=== PATIENT | female | born 1930 | race Caucasian/White ===

== ENCOUNTER 2017-10-31 17:26 | Emergency (ER) | payer MEDICARE ==
[~2017-10-31] VITALS: Ht 149.9 cm; Wt 50.0 kg
[~2017-10-31 17:26] MED LIST: ACET325T14 PO; LEVO25TA2 PO; LISI-170 PO; OMEP-110 PO; POTA20PA PO; SPIR25TA3 PO; TRAM50TA2 PO
[2017-10-31] MEDS ORDERED: SODIUM CHLORIDE FLUSH 10ML SYR IVF ONE (18:00)
[2017-10-31] MEDS ORDERED: SODIUM CHLORIDE 0.9% 1,000ML IVBOLUS ONE (18:00)
[2017-10-31] MEDS ORDERED: ONDANSETRON 2MG/ML, 2ML IVPush ONE (18:00)
[2017-10-31 18:20] LABS: HEMATOCRIT 34.3 % (34.6-47.8); HEMOGLOBIN 11.7 g/dL (11.7-16.4); WHITE BLOOD COUNT 12.9 x10^3/uL (3.4-10)
[2017-10-31] MEDS ORDERED: ONDANSETRON 2MG/ML, 2ML ONE (18:27)
[2017-10-31 18:30] LABS: ASPARTATE AMINO TRANSFERASE 13 U/L (15-37); BLOOD UREA NITROGEN 12 mg/dL (7-18)
[2017-10-31 20:28] VITALS: BP 145/63
[2017-10-31] MEDS ORDERED: MAALOX/HYOSCYAMINE/LIDOCAINE 45 ML BTL PO ONE (21:00)
[2017-10-31] MEDS ORDERED: MAALOX/HYOSCYAMINE/LIDOCAINE 45 ML BTL ONE (21:09)
== END 2017-10-31 21:35 | disposition home or self-care (01) ==
LOC: ED 18:13
DX: R11.2 Nausea with vomiting, unspecified (principal); R19.7 Diarrhea, unspecified; E87.1 Hypo-osmolality and hyponatremia; I10 Essential (primary) hypertension; E03.9 Hypothyroidism, unspecified
CPT/HCPCS: 36415; 80053; 81003; 83690; 85025; 93005; 96360; 99285; J7030

== ENCOUNTER → 2017-11-18 | Outpatient (CLI) | payer MEDICARE | END | disposition home or self-care (01) | LOC: CFH 14:49 | PROVIDERS: ATTEND Internal Medicine Gastroenterology | DX: K52.9 Noninfective gastroenteritis and colitis, unspecified (principal); R11.2 Nausea with vomiting, unspecified | CPT/HCPCS: 74018 ==

== ENCOUNTER 2017-12-30 09:33 | Inpatient (IN) | payer MEDICARE ==
[~2017-12-30] VITALS: Ht 149.9 cm; Wt 51.2 kg
[2017-12-30] MEDS ORDERED: HYDROcodone/APAP 5/325 TABLET PO ONE (10:00)
[2017-12-30] MEDS ORDERED: HYDROcodone/APAP 5/325 TABLET ONE (10:00)
[2017-12-30 10:02] LABS: BASOPHILS # (AUTO) 0.03 x10^3/uL (0-0.1); BASOPHILS % (AUTO) 0 % (0-1); EOSINOPHILS # (AUTO) 0.06 x10^3/uL (0-0.4); EOSINOPHILS % (AUTO) 1 % (1-7); LYMPHOCYTES # (AUTO) 1.51 x10^3/uL (1-3.4); LYMPHOCYTES % (AUTO) 19 % (22-44); MD NO; MEAN CORPUSCULAR HEMOGLOBIN 36.7 pg (27.0-34.8); MEAN CORPUSCULAR VOLUME 108.1 fL (80-100); MEAN PLATELET VOLUME 7.3 fL (7.4-10.4); MONOCYTES # (AUTO) 0.79 x10^3/uL (0.2-0.8); MONOCYTES % (AUTO) 10 % (2-9); NEUTROPHILS # (AUTO) 5.67 x10^3/uL (1.8-6.8); NEUTROPHILS % (AUTO) 70 % (42-75); PLATELET COUNT 273 x10^3/uL (130-400); RED BLOOD COUNT 3.33 x10^6/uL (3.82-5.3); RED CELL DISTRIBUTION WIDTH 13.8 % (9.6-15.2)
[2017-12-30 10:15] LABS: ALBUMIN 3.6 g/dL (3.4-5.0); ANION GAP 8 mmol/L (5-15); CALCIUM 9.6 mg/dL (8.5-10.1); CHLORIDE 92 mmol/L (98-107); CREATININE 0.94 mg/dL (0.55-1.02)
[2017-12-30] MEDS ORDERED: ONDANSETRON ODT 4 MG ONE (11:17)
[2017-12-30 11:59] LABS: CULTURE INDICATED? YES; MICROSCOPIC INDICATED
[2017-12-30] MEDS ORDERED: ONDANSETRON ODT 4 MG PO ONE (12:00)
[2017-12-30] MEDS ORDERED: SODIUM CHLORIDE 0.9% 1,000 ML IV ONE (12:16)
[2017-12-30] MEDS ORDERED: CEFTRIAXONE PMX 1GM/50ML 50 ML IV ONE (12:30)
[2017-12-30] MEDS ORDERED: SODIUM CHLORIDE FLUSH 10ML SYR IVF ONE (12:30)
[2017-12-30] MEDS ORDERED: OMEP40CA6 PO (13:21)
[2017-12-30] MEDS ORDERED: SPIR1TAB3 PO (13:22)
[2017-12-30] MEDS ORDERED: BISACODYL 10 MG SUPP PR PRN (13:30)
[2017-12-30] MEDS ORDERED: POLYETHYLENE GLYCOL 17 GM PACKET PO PRN (13:30)
[2017-12-30] MEDS ORDERED: ENALAPRILAT 1.25 MG/ML, 2ML IVPush PRN (13:30)
[2017-12-30] MEDS ORDERED: TRAZODONE 50MG TABLET PO PRN (13:30)
[2017-12-30] MEDS ORDERED: DOCUSATE 100 MG CAPSULE PO PRN (13:30)
[2017-12-30 14:09] LABS: HCT (SEDRATE) 34.4 % (34.6-47.8)
[2017-12-30 14:26] LABS: FREE T4 (FREE THYROXINE) 1.47 ng/dL (0.76-1.46); THYROID STIMULATING HORMONE 0.383 mIU/L (0.358-3.740)
[2017-12-30] MEDS ORDERED: ENOXAPARIN 40 MG/0.4 ML SQ SCH (14:30)
[2017-12-30] MEDS: SODIUM CHLORIDE 0.9% 1,000 ML IV SCH (17:13)
[2017-12-30] MEDS: ENOXAPARIN 30 MG/0.3 ML SQ SCH (17:13)
[2017-12-30] MEDS: LEVOFLOXACIN/PMX 750MG/150ML 150 ML IV SCH (17:13)
[2017-12-30] MEDS: HYDROcodone/APAP 5/325 TABLET PO PRN (17:24)
[2017-12-30 17:26] VITALS: BP 129/74
[2017-12-30] MEDS: ONDANSETRON 2MG/ML, 2ML IVPush PRN (18:47)
[2017-12-30 20:04] VITALS: BP 100/65
[2017-12-31 02:05] VITALS: BP 121/71
[2017-12-31] MEDS: HYDROcodone/APAP 5/325 TABLET PO PRN ×4 (02:11→17:42)
[2017-12-31] MEDS: ONDANSETRON 2MG/ML, 2ML IVPush PRN ×3 (02:24→22:40)
[2017-12-31] MEDS: SODIUM CHLORIDE 0.9% 1,000 ML IV SCH ×3 (02:24→23:29)
[2017-12-31 05:19] LABS: BASOPHILS # (AUTO) 0.03 x10^3/uL (0-0.1); BASOPHILS % (AUTO) 0 % (0-1); EOSINOPHILS # (AUTO) 0.05 x10^3/uL (0-0.4); EOSINOPHILS % (AUTO) 1 % (1-7); LYMPHOCYTES # (AUTO) 2.55 x10^3/uL (1-3.4); LYMPHOCYTES % (AUTO) 26 % (22-44); MD NO; MEAN CORPUSCULAR HEMOGLOBIN 36.9 pg (27.0-34.8); MEAN CORPUSCULAR HGB CONC 33.7 g/dL (32.4-35.8); MEAN CORPUSCULAR VOLUME 109.4 fL (80-100); MEAN PLATELET VOLUME 7.7 fL (7.4-10.4); MONOCYTES # (AUTO) 0.96 x10^3/uL (0.2-0.8); MONOCYTES % (AUTO) 10 % (2-9); NEUTROPHILS # (AUTO) 6.28 x10^3/uL (1.8-6.8); NEUTROPHILS % (AUTO) 64 % (42-75); PLATELET COUNT 231 x10^3/uL (130-400); RED BLOOD COUNT 2.96 x10^6/uL (3.82-5.3); RED CELL DISTRIBUTION WIDTH 13.5 % (9.6-15.2)
[2017-12-31] MEDS: LEVOTHYROXINE 25 MCG TABLET PO SCH (05:48)
[2017-12-31 05:56] VITALS: BP 122/62
[2017-12-31 06:23] LABS: ANION GAP 11 mmol/L (5-15); CALCIUM 9.4 mg/dL (8.5-10.1); CHLORIDE 96 mmol/L (98-107); CREATININE 1.12 mg/dL (0.55-1.02)
[2017-12-31] MEDS: SPIRONOLACT/HCTZ 25/25MG TABLET PO SCH (09:05)
[2017-12-31] MEDS: PANTOPROZOLE 40MG TABLET PO SCH (09:06)
[2017-12-31] MEDS: LISINOPRIL 20 MG TABLET PO SCH (09:06)
[2017-12-31 13:46] VITALS: BP 120/75
[2017-12-31] MEDS: ONDANSETRON ODT 4 MG PO PRN ×2 (13:50→17:42)
[2017-12-31] MEDS: ENOXAPARIN 30 MG/0.3 ML SQ SCH (17:37)
[2017-12-31] MEDS: LEVOFLOXACIN/PMX 750MG/150ML 150 ML IV SCH (17:37)
[2017-12-31 19:50] VITALS: BP 156/79
[2018-01-01] MEDS: ONDANSETRON 2MG/ML, 2ML IVPush PRN ×4 (02:59→23:02)
[2018-01-01] MEDS: HYDROcodone/APAP 5/325 TABLET PO PRN ×4 (02:59→23:02)
[2018-01-01 03:07] VITALS: BP 132/80
[2018-01-01 05:22] LABS: BASOPHILS # (AUTO) 0.01 x10^3/uL (0-0.1); BASOPHILS % (AUTO) 0 % (0-1); EOSINOPHILS # (AUTO) 0.04 x10^3/uL (0-0.4); EOSINOPHILS % (AUTO) 0 % (1-7); LYMPHOCYTES % (AUTO) 16 % (22-44); MD NO; MEAN CORPUSCULAR HGB CONC 34.3 g/dL (32.4-35.8); MEAN PLATELET VOLUME 7.8 fL (7.4-10.4); MONOCYTES # (AUTO) 0.93 x10^3/uL (0.2-0.8); MONOCYTES % (AUTO) 9 % (2-9); NEUTROPHILS # (AUTO) 7.75 x10^3/uL (1.8-6.8); NEUTROPHILS % (AUTO) 75 % (42-75); PLATELET COUNT 219 x10^3/uL (130-400); RED BLOOD COUNT 2.95 x10^6/uL (3.82-5.3); RED CELL DISTRIBUTION WIDTH 13.3 % (9.6-15.2)
[2018-01-01 05:28] LABS: CHLORIDE 96 mmol/L (98-107)
[2018-01-01 05:35] LABS: ANION GAP 9 mmol/L (5-15); CREATININE 0.74 mg/dL (0.55-1.02)
[2018-01-01] MEDS: LEVOTHYROXINE 25 MCG TABLET PO SCH (05:43)
[2018-01-01 05:45] VITALS: BP 130/73
[2018-01-01 06:06] LABS: HCT (SEDRATE) 31.9 % (34.6-47.8)
[2018-01-01] MEDS: PANTOPROZOLE 40MG TABLET PO SCH (10:06)
[2018-01-01] MEDS: LISINOPRIL 20 MG TABLET PO SCH (10:06)
[2018-01-01] MEDS: SPIRONOLACT/HCTZ 25/25MG TABLET PO SCH (10:06)
[2018-01-01] MEDS: SODIUM CHLORIDE 0.9% 1,000 ML IV SCH (10:11)
[2018-01-01 12:00] LABS: BASOPHILS # (AUTO) 0.04 x10^3/uL (0-0.1); BASOPHILS % (AUTO) 0 % (0-1); EOSINOPHILS # (AUTO) 0.05 x10^3/uL (0-0.4); EOSINOPHILS % (AUTO) 1 % (1-7); LYMPHOCYTES # (AUTO) 1.85 x10^3/uL (1-3.4); LYMPHOCYTES % (AUTO) 19 % (22-44); MD NO; MEAN CORPUSCULAR HEMOGLOBIN 38.1 pg (27.0-34.8); MEAN CORPUSCULAR HGB CONC 34.8 g/dL (32.4-35.8); MEAN CORPUSCULAR VOLUME 109.2 fL (80-100); MEAN PLATELET VOLUME 7.8 fL (7.4-10.4); MONOCYTES # (AUTO) 0.87 x10^3/uL (0.2-0.8); MONOCYTES % (AUTO) 9 % (2-9); NEUTROPHILS # (AUTO) 6.99 x10^3/uL (1.8-6.8); NEUTROPHILS % (AUTO) 71 % (42-75); PLATELET COUNT 214 x10^3/uL (130-400); RED BLOOD COUNT 2.87 x10^6/uL (3.82-5.3); RED CELL DISTRIBUTION WIDTH 13.2 % (9.6-15.2)
[2018-01-01 13:39] VITALS: BP 168/79
[2018-01-01] MEDS: LEVOFLOXACIN/PMX 750MG/150ML 150 ML IV SCH (17:09)
[2018-01-01] MEDS: ENOXAPARIN 30 MG/0.3 ML SQ SCH (17:09)
[2018-01-01 21:22] VITALS: BP 155/79
[2018-01-02 01:02] VITALS: BP 156/78
[2018-01-02] MEDS: LEVOTHYROXINE 25 MCG TABLET PO SCH (04:56)
[2018-01-02] MEDS: HYDROcodone/APAP 5/325 TABLET PO PRN ×2 (04:56→11:31)
[2018-01-02] MEDS: ONDANSETRON 2MG/ML, 2ML IVPush PRN ×2 (04:57→11:31)
[2018-01-02 06:02] LABS: BASOPHILS # (AUTO) 0.03 x10^3/uL (0-0.1); BASOPHILS % (AUTO) 0 % (0-1); EOSINOPHILS # (AUTO) 0.08 x10^3/uL (0-0.4); EOSINOPHILS % (AUTO) 1 % (1-7); LYMPHOCYTES % (AUTO) 26 % (22-44); MD NO; MEAN CORPUSCULAR HEMOGLOBIN 36.6 pg (27.0-34.8); MEAN CORPUSCULAR HGB CONC 33.5 g/dL (32.4-35.8); MEAN CORPUSCULAR VOLUME 109.3 fL (80-100); MEAN PLATELET VOLUME 8.6 fL (7.4-10.4); MONOCYTES # (AUTO) 0.97 x10^3/uL (0.2-0.8); MONOCYTES % (AUTO) 11 % (2-9); NEUTROPHILS # (AUTO) 5.76 x10^3/uL (1.8-6.8); NEUTROPHILS % (AUTO) 62 % (42-75); PLATELET COUNT 170 x10^3/uL (130-400); RED BLOOD COUNT 3.19 x10^6/uL (3.82-5.3); RED CELL DISTRIBUTION WIDTH 13.6 % (9.6-15.2)
[2018-01-02 06:05] LABS: ANION GAP 9 mmol/L (5-15); CALCIUM 9.3 mg/dL (8.5-10.1); CHLORIDE 94 mmol/L (98-107); CREATININE 0.62 mg/dL (0.55-1.02)
[2018-01-02 07:19] VITALS: BP 128/75
[2018-01-02] MEDS ORDERED: ACET650S21 PO (10:35)
[2018-01-02] MEDS ORDERED: CEFT1FRO2 IVPB (10:35)
[2018-01-02] MEDS ORDERED: DOCU-131 PO (10:35)
[2018-01-02] MEDS ORDERED: ONDA4TAB13 PO (10:35)
[2018-01-02] MEDS ORDERED: ENOX30SY4 SQ (10:35)
[2018-01-02] MEDS ORDERED: TRAZ50TA18 PO (10:35)
[2018-01-02] MEDS ORDERED: LIDODERM 5% PATCH TD SCH (11:00)
[2018-01-02] MEDS ORDERED: SODIUM CHLORIDE 0.9% 1,000 ML IV SCH (11:00)
[2018-01-02] MEDS: PANTOPROZOLE 40MG TABLET PO SCH (11:20)
[2018-01-02] MEDS: SPIRONOLACT/HCTZ 25/25MG TABLET PO SCH (11:21)
[2018-01-02] MEDS: LISINOPRIL 20 MG TABLET PO SCH (11:21)
== END 2018-01-02 14:14 | DRG 689 ==
LOC: ED 10:54 → EDIP 12:27 → 3NE 14:05
PROVIDERS: ADMIT Hospitalist; ATTEND Hospitalist
PROC: 0T9B70Z Drainage of Bladder with Drainage Device, Via Natural or Artificial Opening (ICD-10-PCS; principal; 2017-12-30)
DX: N39.0 Urinary tract infection, site not specified (principal); N17.0 Acute kidney failure with tubular necrosis; E87.1 Hypo-osmolality and hyponatremia; E03.9 Hypothyroidism, unspecified; M48.061 Spinal stenosis, lumbar region without neurogenic claudication; I10 Essential (primary) hypertension; B95.5 Unspecified streptococcus as the cause of diseases classified elsewhere; M51.36 Other intervertebral disc degeneration, lumbar region; Z91.81 History of falling; Z79.899 Other long term (current) drug therapy; Z88.8 Allergy status to other drugs, medicaments and biological substances; Z87.440 Personal history of urinary (tract) infections; Z82.49 Family history of ischemic heart disease and other diseases of the circulatory system
CPT/HCPCS: 36415; 72131; 80048; 81001; 82040; 83930; 84439; 84443; 85025; 85651; 87086; 99285; J1650; J1956; J2405; Q0162; J7030

== ENCOUNTER 2018-03-29 15:28 | Emergency (ER) | payer MEDICARE ==
[~2018-03-29] VITALS: Ht 149.9 cm; Wt 48.0 kg
[~2018-03-29 15:28] MED LIST changes: +ACET650S21 PO; +CEFT1FRO2 IVPB; +DOCU-131 PO; +ENOX30SY4 SQ; +OMEP40CA6 PO; +ONDA4TAB13 PO; +SPIR1TAB3 PO; +TRAZ50TA18 PO
[2018-03-29 15:43] VITALS: BP 149/73
[2018-03-29 16:33] LABS: CULTURE INDICATED? YES; MICROSCOPIC INDICATED
[2018-03-29] MEDS ORDERED: CEFTRIAXONE 1,000 MG IM ONE (17:00)
[2018-03-29] MEDS ORDERED: LIDOCAINE-MPF 1%, 2ML ONE (17:03)
[2018-03-29] MEDS ORDERED: CEFTRIAXONE 1,000 MG ONE (17:03)
== END 2018-03-29 17:41 | disposition home or self-care (01) ==
LOC: ED 17:30
DX: N30.90 Cystitis, unspecified without hematuria (principal); E87.1 Hypo-osmolality and hyponatremia; E83.42 Hypomagnesemia; E03.9 Hypothyroidism, unspecified; I10 Essential (primary) hypertension; Z88.5 Allergy status to narcotic agent
CPT/HCPCS: 81001; 87086; 96372; 99284; J0696

== ENCOUNTER 2019-05-11 15:43 | Inpatient (IN) | payer MEDICARE ==
[~2019-05-11] VITALS: Ht 149.9 cm; Wt 47.7 kg
[~2019-05-11 15:43] MED LIST changes: +CEFU250T66 PO; +DOXY100T PO; +GABA-826 PO; +METO25TA91 PO; -POTA20PA PO; +POTA20PA31 PO; +PRED10TA PO; -SPIR25TA3 PO; +SPIR25TA5 PO; -TRAZ50TA18 PO; +TRAZ50TA66 PO
[2019-05-11] MEDS ORDERED: CRAN1CAP5 PO (16:11)
[2019-05-11] MEDS ORDERED: CEPH-375 PO (16:11)
[2019-05-11] MEDS ORDERED: HYDR-3240 PO (16:11)
[2019-05-11] MEDS ORDERED: PANT40TA5 PO (16:11)
[2019-05-11] MEDS ORDERED: methylPREDNISolone SOD SUCC 125 MG/2 ML ONE (16:17)
[2019-05-11] MEDS ORDERED: methylPREDNISolone SOD SUCC 125 MG/2 ML IVP ONE (16:30)
[2019-05-11] MEDS ORDERED: SODIUM CHLORIDE FLUSH 10ML SYR IVF ONE (16:30)
[2019-05-11 16:57] LABS: BASOPHILS # (AUTO) 0.04 x10^3/uL (0-0.1); BASOPHILS % (AUTO) 0 % (0-1); EOSINOPHILS # (AUTO) 0.17 x10^3/uL (0-0.4); EOSINOPHILS % (AUTO) 1 % (1-7); LYMPHOCYTES # (AUTO) 2.52 x10^3/uL (1-3.4); LYMPHOCYTES % (AUTO) 21 % (22-44); MD NO; MEAN CORPUSCULAR HEMOGLOBIN 35.6 pg (27.0-34.8); MEAN CORPUSCULAR HGB CONC 33.3 g/dL (32.4-35.8); MEAN CORPUSCULAR VOLUME 106.9 fL (80-100); MEAN PLATELET VOLUME 8.9 fL (7.4-10.4); MONOCYTES # (AUTO) 0.79 x10^3/uL (0.2-0.8); MONOCYTES % (AUTO) 7 % (2-9); NEUTROPHILS # (AUTO) 8.47 x10^3/uL (1.8-6.8); NEUTROPHILS % (AUTO) 71 % (42-75); PLATELET COUNT 138 x10^3/uL (130-400); RED BLOOD COUNT 3.79 x10^6/uL (3.82-5.3)
--- NOTE | 2019-05-11 17:01 | NUR ---
pt upright on gurney awake & comfortable, watching TV, responds approp to staff, NAD with suppl O2 in place, comfort measures provided, call light within reach.
[2019-05-11 17:08] LABS: ALBUMIN 3.6 g/dL (3.4-5.0); ANION GAP 8 mmol/L (5-15); CALCIUM 9.6 mg/dL (8.5-10.1); CHLORIDE 105 mmol/L (98-107)
[2019-05-11 17:13] LABS: ALANINE AMINOTRANSFERASE 10 U/L (12-78); ALKALINE PHOSPHATASE 77 U/L (45-117); BILIRUBIN,TOTAL 0.6 mg/dL (0.2-1.0); CREATININE 0.83 mg/dL (0.55-1.02); TOTAL PROTEIN 7.2 g/dL (6.4-8.2); TROPONIN I < 0.015 ng/mL (0.000-0.045)
--- NOTE | 2019-05-11 18:04 | NUR ---
pt upright on gurney awake & comfortable, responds approp to staff, NAD with suppl O2 in place, comfort measures provided, call light within reach. pt to CTA
[2019-05-11] MEDS ORDERED: OMNIPAQUE 350 MG/ML, 100ML BOTTLE ONE (18:25)
--- NOTE | 2019-05-11 18:59 | NUR ---
report given to Melisa
--- NOTE | 2019-05-11 19:12 | NUR ---
pt incontinent of urine, pt cleaned and complete linen cane, provided pt with mesh pants and pad. noted pt's sp02- 88^% on 3.5l n/c increased o2 to 5.5 l spo2- 94%. monitors in place, call light within reach
[2019-05-11] MEDS ORDERED: SODIUM CHLORIDE FLUSH 10ML SYR IVF PRN (20:00)
[2019-05-11 20:27] VITALS: BP 184/96
[2019-05-11] MEDS ORDERED: TEMAZEPAM 15 MG CAPSULE PO PRN (22:30)
[2019-05-11] MEDS ORDERED: DOCUSATE 100 MG CAPSULE PO PRN (22:30)
[2019-05-11] MEDS ORDERED: ENOXAPARIN 40 MG/0.4 ML SQ SCH (22:30)
[2019-05-11] MEDS ORDERED: LIDODERM 5% PATCH TD PRN (22:30)
[2019-05-11] MEDS ORDERED: ENALAPRILAT 1.25 MG/ML, 2ML IVPush PRN (22:30)
[2019-05-11] MEDS ORDERED: ACETAMINOPHEN 325 MG TABLET PO PRN (22:30)
[2019-05-11] MEDS ORDERED: ONDANSETRON 2MG/ML, 2ML IVPush PRN (22:30)
[2019-05-12 01:09] VITALS: BP 155/89
[2019-05-12] MEDS ORDERED: HYDROcodone/APAP 5/325 TABLET PO PRN (01:30)
[2019-05-12 04:50] LABS: ANION GAP 9 mmol/L (5-15); CALCIUM 9.3 mg/dL (8.5-10.1); CHLORIDE 106 mmol/L (98-107)
[2019-05-12 04:51] LABS: CREATININE 0.87 mg/dL (0.55-1.02)
[2019-05-12 05:49] LABS: MEAN CORPUSCULAR HEMOGLOBIN 35.7 pg (27.0-34.8); MEAN CORPUSCULAR HGB CONC 33.4 g/dL (32.4-35.8); MEAN CORPUSCULAR VOLUME 106.9 fL (80-100); MEAN PLATELET VOLUME 7.3 fL (7.4-10.4); PLATELET COUNT 178 x10^3/uL (130-400); RED BLOOD COUNT 3.69 x10^6/uL (3.82-5.3); RED CELL DISTRIBUTION WIDTH 13.8 % (9.6-15.2)
[2019-05-12 05:50] LABS: BASOPHILS # (AUTO) 0.02 x10^3/uL (0-0.1); BASOPHILS % (AUTO) 0 % (0-1); EOSINOPHILS % (AUTO) 0 % (1-7); LYMPHOCYTES # (AUTO) 2.09 x10^3/uL (1-3.4); LYMPHOCYTES % (AUTO) 18 % (22-44); MD SCAN; MONOCYTES # (AUTO) 0.13 x10^3/uL (0.2-0.8); MONOCYTES % (AUTO) 1 % (2-9); NEUTROPHILS # (AUTO) 9.08 x10^3/uL (1.8-6.8); NEUTROPHILS % (AUTO) 80 % (42-75)
[2019-05-12 07:24] VITALS: BP 158/78
[2019-05-12] MEDS: PANTOPROZOLE 40MG TABLET PO SCH (08:00)
[2019-05-12] MEDS: GABAPENTIN 100 MG CAPSULE PO SCH ×3 (08:00→21:04)
[2019-05-12] MEDS: CEPHALEXIN 250 MG CAPSULE PO SCH (08:00)
[2019-05-12] MEDS ORDERED: LISINOPRIL 5 MG TABLET PO SCH (09:00)
[2019-05-12 13:41] VITALS: BP 162/73
[2019-05-12 17:27] LABS: ANION GAP 8 mmol/L (5-15); CALCIUM 9.6 mg/dL (8.5-10.1); CHLORIDE 103 mmol/L (98-107); CREATININE 1.02 mg/dL (0.55-1.02)
[2019-05-12] MEDS ORDERED: FUROSEMIDE 40 MG/4 ML IV ONE (17:30)
[2019-05-12 18:53] VITALS: BP 162/78
[2019-05-12] MEDS: LISINOPRIL 5 MG TABLET PO SCH (21:04)
[2019-05-13 01:45] VITALS: BP 144/81
[2019-05-13 04:34] LABS: ANION GAP 7 mmol/L (5-15); CALCIUM 9.3 mg/dL (8.5-10.1); CHLORIDE 102 mmol/L (98-107); CREATININE 0.87 mg/dL (0.55-1.02)
[2019-05-13 06:33] LABS: MEAN PLATELET VOLUME 6.9 fL (7.4-10.4); PLATELET COUNT 212 x10^3/uL (130-400)
[2019-05-13 06:34] LABS: MEAN CORPUSCULAR HEMOGLOBIN 35.2 pg (27.0-34.8); MEAN CORPUSCULAR HGB CONC 32.8 g/dL (32.4-35.8); MEAN CORPUSCULAR VOLUME 107.4 fL (80-100); RED CELL DISTRIBUTION WIDTH 13.9 % (9.6-15.2)
[2019-05-13 06:35] LABS: BASOPHILS # (AUTO) 0.03 x10^3/uL (0-0.1); BASOPHILS % (AUTO) 0 % (0-1); EOSINOPHILS # (AUTO) 0.01 x10^3/uL (0-0.4); EOSINOPHILS % (AUTO) 0 % (1-7); LYMPHOCYTES # (AUTO) 2.72 x10^3/uL (1-3.4); LYMPHOCYTES % (AUTO) 23 % (22-44); MD SCAN; MONOCYTES # (AUTO) 1.13 x10^3/uL (0.2-0.8); MONOCYTES % (AUTO) 10 % (2-9); NEUTROPHILS # (AUTO) 7.88 x10^3/uL (1.8-6.8); NEUTROPHILS % (AUTO) 67 % (42-75)
[2019-05-13 07:42] VITALS: BP 117/69
[2019-05-13 08:00] VITALS: BP 117/69
[2019-05-13] MEDS: GABAPENTIN 100 MG CAPSULE PO SCH ×3 (08:57→21:00)
[2019-05-13] MEDS: CEPHALEXIN 250 MG CAPSULE PO SCH (08:57)
[2019-05-13] MEDS: PANTOPROZOLE 40MG TABLET PO SCH (08:57)
[2019-05-13] MEDS: ENOXAPARIN 30 MG/0.3 ML SQ SCH (08:58)
[2019-05-13] MEDS: LISINOPRIL 5 MG TABLET PO SCH ×2 (08:58→21:01)
[2019-05-13] MEDS ORDERED: FUROSEMIDE 40 MG/4 ML IV ONE (11:30)
[2019-05-13] MEDS: POTASSIUM CHLORIDE 20 MEQ TAB.ER.PRT PO SCH ×2 (12:41→14:29)
[2019-05-13 13:05] VITALS: BP 112/77
[2019-05-13] MEDS: AZITHROMYCIN 500 MG in SODIUM CHLORIDE 0.9% 250 ML IV SCH (18:03)
[2019-05-13 19:26] VITALS: BP 95/57
[2019-05-13 20:59] VITALS: BP 104/62
[2019-05-14 02:17] VITALS: BP 116/60
[2019-05-14 06:07] LABS: ANION GAP 5 mmol/L (5-15); CALCIUM 9.4 mg/dL (8.5-10.1); CHLORIDE 106 mmol/L (98-107)
[2019-05-14 06:09] LABS: CREATININE 0.93 mg/dL (0.55-1.02)
[2019-05-14] MEDS: LISINOPRIL 5 MG TABLET PO SCH ×2 (07:40→20:44)
[2019-05-14] MEDS: PANTOPROZOLE 40MG TABLET PO SCH (08:10)
[2019-05-14] MEDS: GABAPENTIN 100 MG CAPSULE PO SCH ×3 (08:10→20:43)
[2019-05-14] MEDS: ENOXAPARIN 30 MG/0.3 ML SQ SCH (08:10)
[2019-05-14 08:17] VITALS: BP 102/64
[2019-05-14] MEDS ORDERED: FUROSEMIDE 40 MG/4 ML IV ONE (09:30)
[2019-05-14] MEDS: LACTOBACILLUS 1GM/ PACKET PO SCH ×3 (11:12→20:43)
[2019-05-14 13:15] VITALS: BP 92/59
[2019-05-14] MEDS: AZITHROMYCIN 500 MG in SODIUM CHLORIDE 0.9% 250 ML IV SCH (17:01)
[2019-05-14 19:16] VITALS: BP 96/60
[2019-05-15 02:12] VITALS: BP 98/60
[2019-05-15 07:12] VITALS: BP 117/66
[2019-05-15] MEDS: PANTOPROZOLE 40MG TABLET PO SCH (08:06)
[2019-05-15] MEDS: LACTOBACILLUS 1GM/ PACKET PO SCH ×2 (08:06→16:53)
[2019-05-15] MEDS: LISINOPRIL 5 MG TABLET PO SCH (08:06)
[2019-05-15] MEDS: ENOXAPARIN 30 MG/0.3 ML SQ SCH (08:06)
[2019-05-15] MEDS: GABAPENTIN 100 MG CAPSULE PO SCH ×2 (08:06→16:53)
[2019-05-15 13:04] VITALS: BP 115/72
[2019-05-15] MEDS ORDERED: FURO-93 PO (13:58)
[2019-05-15] MEDS ORDERED: ACID1GRA3 PO (13:58)
[2019-05-15] MEDS ORDERED: POTA10TA31 PO (13:58)
[2019-05-15] MEDS ORDERED: AZIT500T5 PO (13:58)
[2019-05-15] MEDS: AZITHROMYCIN 500 MG in SODIUM CHLORIDE 0.9% 250 ML IV SCH (16:56)
== END 2019-05-15 17:41 | disposition home health service (06) | DRG 291 ==
LOC: ED 18:32 → EDIP 19:36 → 3NE 20:19
PROVIDERS: ADMIT Internal Medicine; ATTEND Internal Medicine
DX: I11.0 Hypertensive heart disease with heart failure (principal); J96.01 Acute respiratory failure with hypoxia; N39.0 Urinary tract infection, site not specified; I50.33 Acute on chronic diastolic (congestive) heart failure; E03.9 Hypothyroidism, unspecified; E83.42 Hypomagnesemia; I16.0 Hypertensive urgency; I35.8 Other nonrheumatic aortic valve disorders; J47.9 Bronchiectasis, uncomplicated; J84.10 Pulmonary fibrosis, unspecified; Z66 Do not resuscitate; Z79.899 Other long term (current) drug therapy; Z82.49 Family history of ischemic heart disease and other diseases of the circulatory system; Z87.01 Personal history of pneumonia (recurrent); Z87.440 Personal history of urinary (tract) infections; Z87.891 Personal history of nicotine dependence; Z95.0 Presence of cardiac pacemaker; Z99.81 Dependence on supplemental oxygen
CPT/HCPCS: 36415; 71045; 71250; 71275; 80048; 80053; 83605; 83880; 84484; 85025; 87040; 93005; 96374; 99285; G0378; J0456; J1650; J1940; J2405; Q9967; J2930; J7050; J7512

== ENCOUNTER 2019-05-19 09:20 | Emergency (ER) | payer MEDICARE ==
[~2019-05-19] VITALS: Ht 149.9 cm; Wt 45.5 kg
[~2019-05-19 09:20] MED LIST changes: +ACID1GRA3 PO; +AZIT500T5 PO; +CEPH-375 PO; +CRAN1CAP5 PO; +FURO-93 PO; +HYDR-3240 PO; +PANT40TA5 PO; +POTA10TA31 PO
--- NOTE | 2019-05-19 10:15 | NUR ---
X-RAY IN ROOM WITH PATIENT. UA SENT TO LAB. PT DAUGHTER AT BEDSIDE.
[2019-05-19 10:31] LABS: MICROSCOPIC AUTO
[2019-05-19 10:34] LABS: CULTURE INDICATED? YES
[2019-05-19 10:48] LABS: ANION GAP 7 mmol/L (5-15); CALCIUM 9.9 mg/dL (8.5-10.1); CHLORIDE 102 mmol/L (98-107); CREATININE 1.31 mg/dL (0.55-1.02)
[2019-05-19 10:52] LABS: TROPONIN I < 0.015 ng/mL (0.000-0.045)
[2019-05-19 10:56] LABS: MEAN CORPUSCULAR HGB CONC 32.6 g/dL (32.4-35.8); MEAN CORPUSCULAR VOLUME 104.2 fL (80-100); MEAN PLATELET VOLUME 6.6 fL (7.4-10.4); PLATELET COUNT 231 x10^3/uL (130-400); RED BLOOD COUNT 3.66 x10^6/uL (3.82-5.3); RED CELL DISTRIBUTION WIDTH 13.7 % (9.6-15.2)
--- NOTE | 2019-05-19 11:10 | NUR ---
BEDSIDE REPORT FROM KASH ZAMORA, PT RESTING IN [facility] ON MONITOR. VSS. NO NEEDS AT THIS TIME, DAUGHTER AT BEDSIDE. AWAITING LAB RESULTS.
[2019-05-19] MEDS ORDERED: CEFDINIR 300 MG CAPSULE ONE (11:11)
[2019-05-19 11:12] LABS: MD YES
[2019-05-19 11:14] LABS: BAND#(MANUAL) 0.92 x10^3/uL; BANDS%(MANUAL) 5 % (0-7); LYMPH#(MANUAL) 1.66 x10^3/uL (1-3.4); LYMPHS% (MANUAL) 9 % (22-44); MONOS#(MANUAL) 0.55 x10^3/uL (0.3-2.7); MONOS% (MANUAL) 3 % (2-9); SEG#(MANUAL) 15.27 x10^3/uL (1.8-6.8); SEGS% (MANUAL) 83 % (42-75)
[2019-05-19 11:17] LABS: <PLATELET ESTIMATE> ADEQUATE; <PLT MORPHOLOGY> NORMAL PLT MORPH; ANISOCYTOSIS 1+
--- NOTE | 2019-05-19 11:27 | NUR ---
PT NOTIFIED RN THAT SHE WAS ON KEFLEX FOR CHRONIC UTI'S PER UROLOGIST BUT WAS TAKEN OFF AFTER LAST HOSPITAL VISIT AND NOT RESTARTED, MD NOTIFIED. PER MD GIVE DOSE OF OMNICEF AND WILL RESTART KEFLEX AND FOLLOW UP WITH UROLOGY.
[2019-05-19] MEDS ORDERED: CEFDINIR 300 MG CAPSULE PO ONE (11:30)
--- NOTE | 2019-05-19 12:07 | NUR ---
PT DOES NOT HAVE HOME O2 WITH HER, [facility] DID NOT BRING IN AMBULANCE. PT'S DAUGHTER TO GO HOME AND GET IT AND COME BACK, WILL BE ABOUT 40MIN. APPEALS SPECIALIST NOTIFIED
[2019-05-19 12:10] VITALS: BP 104/46
== END 2019-05-19 12:58 | disposition home or self-care (01) ==
LOC: ED 10:47
DX: J96.11 Chronic respiratory failure with hypoxia (principal); N30.00 Acute cystitis without hematuria; E03.9 Hypothyroidism, unspecified; I11.0 Hypertensive heart disease with heart failure; I50.9 Heart failure, unspecified; Z95.0 Presence of cardiac pacemaker
CPT/HCPCS: 36415; 71045; 80048; 81001; 82040; 83880; 84484; 85025; 87077; 87086; 87186; 93005; 99284

== ENCOUNTER 2019-06-06 08:26 | Outpatient (CLI) | payer MEDICARE ==
[2019-06-06 08:45] LABS: BASOPHILS # (AUTO) 0.03 x10^3/uL (0-0.1); BASOPHILS % (AUTO) 0 % (0-1); EOSINOPHILS # (AUTO) 0.21 x10^3/uL (0-0.4); EOSINOPHILS % (AUTO) 3 % (1-7); LYMPHOCYTES # (AUTO) 3.17 x10^3/uL (1-3.4); LYMPHOCYTES % (AUTO) 41 % (22-44); MD NO; MEAN CORPUSCULAR HEMOGLOBIN 34.2 pg (27.0-34.8); MEAN CORPUSCULAR HGB CONC 32.5 g/dL (32.4-35.8); MEAN CORPUSCULAR VOLUME 105.4 fL (80-100); MEAN PLATELET VOLUME 7.4 fL (7.4-10.4); MONOCYTES # (AUTO) 0.71 x10^3/uL (0.2-0.8); MONOCYTES % (AUTO) 9 % (2-9); NEUTROPHILS # (AUTO) 3.61 x10^3/uL (1.8-6.8); NEUTROPHILS % (AUTO) 47 % (42-75); PLATELET COUNT 258 x10^3/uL (130-400); RED BLOOD COUNT 3.68 x10^6/uL (3.82-5.3); RED CELL DISTRIBUTION WIDTH 14.6 % (9.6-15.2)
[2019-06-06 08:52] LABS: CALCIUM 10.1 mg/dL (8.5-10.1); CHLORIDE 103 mmol/L (98-107)
[2019-06-06 09:01] LABS: ALANINE AMINOTRANSFERASE 10 U/L (12-78); ALBUMIN 3.7 g/dL (3.4-5.0); ALKALINE PHOSPHATASE 64 U/L (45-117); ANION GAP 6 mmol/L (5-15); BILIRUBIN,TOTAL 0.6 mg/dL (0.2-1.0); CHOL/HDL RATIO 2.9; CHOLESTEROL, TOTAL 209 mg/dL (140-239); CREATININE 0.91 mg/dL (0.55-1.02); HDL CHOL % 34 % (28-40); HDL CHOLESTEROL (DIRECT) 72 mg/dL (40-60); LDL CHOLESTEROL,CALCULATED 121 mg/dL (54-169); LDL/HDL RATIO 1.7 (0.5-3.0); T4 (THYROXINE) 5.7 mcg/dL (4.8-13.9); TOTAL PROTEIN 7.7 g/dL (6.4-8.2); TRIGLYCERIDES 79 mg/dL (50-200); VLDL CHOLESTEROL 16 mg/dL (0-25)
[2019-08-22] MEDS ORDERED: ATORVASTATIN (03:16)
[2019-08-22] MEDS ORDERED: METOPROLOL (03:16)
[2019-08-22] MEDS ORDERED: KEFLEX (03:37)
[2019-08-28] MEDS ORDERED: AMLO-150 PO (10:21)
[2019-08-28] MEDS ORDERED: LEVO250T8 PO (10:21)
[2019-08-28] MEDS ORDERED: LISI-170 PO (10:21)
[2019-08-28] MEDS ORDERED: ERGO500017 PO (10:21)
== END 2019-06-06 23:59 | disposition home or self-care (01) ==
LOC: LAB 08:26
PROVIDERS: ATTEND Internal Medicine Cardiovascular Disease
DX: R55 Syncope and collapse (principal); I10 Essential (primary) hypertension; Z95.0 Presence of cardiac pacemaker
CPT/HCPCS: 36415; 80053; 80061; 84436; 84443; 84481; 85025

== ENCOUNTER → 2019-09-14 | Outpatient (CLI) | payer MEDICARE ==
[~2019-09-14] MED LIST changes: +AMLO-150 PO; +ATORVASTATIN; +AZIT500T10 PO; -AZIT500T5 PO; +ERGO500017 PO; +KEFLEX; +LEVO250T8 PO; +METOPROLOL; +OMEP40CA42 PO; -OMEP40CA6 PO
[2019-09-14 08:36] LABS: ALANINE AMINOTRANSFERASE 15 U/L (12-78); ALBUMIN 3.6 g/dL (3.4-5.0); ANION GAP 6 mmol/L (5-15); CALCIUM 9.6 mg/dL (8.5-10.1); CHLORIDE 105 mmol/L (98-107)
[2019-09-14 08:45] LABS: ALKALINE PHOSPHATASE 344 U/L (45-117); BILIRUBIN,TOTAL 0.6 mg/dL (0.2-1.0); CHOL/HDL RATIO 2.1; CHOLESTEROL, TOTAL 152 mg/dL (140-239); HDL CHOL % 47 % (28-40); HDL CHOLESTEROL (DIRECT) 71 mg/dL (40-60); LDL CHOLESTEROL,CALCULATED 67 mg/dL (54-169); LDL/HDL RATIO 0.9 (0.5-3.0); TOTAL PROTEIN 7.8 g/dL (6.4-8.2); TRIGLYCERIDES 69 mg/dL (50-200); VLDL CHOLESTEROL 14 mg/dL (0-25)
== END | disposition home or self-care (01) ==
LOC: LAB 08:11
PROVIDERS: ATTEND Internal Medicine Cardiovascular Disease
DX: I11.0 Hypertensive heart disease with heart failure (principal); I50.32 Chronic diastolic (congestive) heart failure; E78.00 Pure hypercholesterolemia, unspecified; R09.02 Hypoxemia; Z95.0 Presence of cardiac pacemaker; Z82.49 Family history of ischemic heart disease and other diseases of the circulatory system; Z80.3 Family history of malignant neoplasm of breast; Z91.018 Allergy to other foods; Z87.891 Personal history of nicotine dependence
CPT/HCPCS: 36415; 80053; 80061; 84436; 84443; 84481

== ENCOUNTER 2019-10-20 16:48 | Emergency (ER) | payer MEDICARE ==
[~2019-10-20] VITALS: Ht 149.9 cm; Wt 47.2 kg
[~2019-10-20 16:48] MED LIST changes: +ACET325T26 PO; +CEFD300C37 PO; +FLUC200T4 PO; +METR500T PO; +POLY17PO5 PO; +SENN-193 PO
--- NOTE | 2019-10-20 18:28 | NUR ---
PT UNABLE TO PRODUCE STOOL SPECIMEN AT THIS POINT.
[2019-10-20 18:31] LABS: BASOPHILS # (AUTO) 0.04 x10^3/uL (0-0.1); BASOPHILS % (AUTO) 1 % (0-1); EOSINOPHILS # (AUTO) 0.45 x10^3/uL (0-0.4); EOSINOPHILS % (AUTO) 6 % (1-7); LYMPHOCYTES # (AUTO) 2.18 x10^3/uL (1-3.4); LYMPHOCYTES % (AUTO) 31 % (22-44); MD NO; MEAN CORPUSCULAR HEMOGLOBIN 35.3 pg (27.0-34.8); MEAN CORPUSCULAR HGB CONC 32.5 g/dL (32.4-35.8); MEAN CORPUSCULAR VOLUME 108.5 fL (80-100); MEAN PLATELET VOLUME 9.3 fL (7.4-10.4); MONOCYTES # (AUTO) 0.94 x10^3/uL (0.2-0.8); MONOCYTES % (AUTO) 13 % (2-9); NEUTROPHILS # (AUTO) 3.53 x10^3/uL (1.8-6.8); NEUTROPHILS % (AUTO) 50 % (42-75); PLATELET COUNT 238 x10^3/uL (130-400); RED BLOOD COUNT 3.04 x10^6/uL (3.82-5.3); RED CELL DISTRIBUTION WIDTH 14.4 % (9.6-15.2)
[2019-10-20 18:39] LABS: ALBUMIN 3.2 g/dL (3.4-5.0); ANION GAP 6 mmol/L (5-15); CHLORIDE 110 mmol/L (98-107)
[2019-10-20 18:43] LABS: ALANINE AMINOTRANSFERASE 22 U/L (12-78); ALKALINE PHOSPHATASE 74 U/L (45-117); BILIRUBIN,TOTAL 0.4 mg/dL (0.2-1.0); TOTAL PROTEIN 6.7 g/dL (6.4-8.2)
[2019-10-20 19:40] LABS: CLOSTRIDIUM DIFFICILE ANTIGEN NEGATIVE; CLOSTRIDIUM DIFFICILE TOXIN NEGATIVE (Negative)
[2019-10-20 19:50] VITALS: BP 151/69
== END 2019-10-20 20:01 | disposition home or self-care (01) ==
LOC: ED 19:12
DX: R19.7 Diarrhea, unspecified (principal); I11.0 Hypertensive heart disease with heart failure; I50.9 Heart failure, unspecified; E03.9 Hypothyroidism, unspecified; E87.1 Hypo-osmolality and hyponatremia; Z72.89 Other problems related to lifestyle
CPT/HCPCS: 36415; 80053; 85025; 87324; 89055; 99283

== ENCOUNTER 2020-06-29 21:13 | Emergency (ER) | payer MEDICARE ==
[~2020-06-29] VITALS: Ht 149.9 cm; Wt 49.0 kg
[~2020-06-29 21:13] MED LIST changes: +ATOR20TA86 PO; -CRAN1CAP5 PO; +CRAN1CAP6 PO; +LEVO25TA4 PO; +METO-264 PO
[2020-06-29] MEDS ORDERED: ONDANSETRON 2MG/ML, 2ML ONE (22:00)
[2020-06-29] MEDS ORDERED: ONDANSETRON 2MG/ML, 2ML IVPush ONE (22:00)
[2020-06-29 22:17] VITALS: BP 125/50
[2020-06-29 22:26] LABS: BASOPHILS # (AUTO) 0.03 x10^3/uL (0-0.1); BASOPHILS % (AUTO) 0 % (0-1); EOSINOPHILS # (AUTO) 0.18 x10^3/uL (0-0.4); EOSINOPHILS % (AUTO) 2 % (1-7); LYMPHOCYTES # (AUTO) 1.88 x10^3/uL (1-3.4); LYMPHOCYTES % (AUTO) 21 % (22-44); MD NO; MEAN CORPUSCULAR HEMOGLOBIN 33.4 pg (27.0-34.8); MEAN CORPUSCULAR HGB CONC 32.8 g/dL (32.4-35.8); MEAN CORPUSCULAR VOLUME 101.7 fL (80-100); MEAN PLATELET VOLUME 10.2 fL (7.4-10.4); MONOCYTES # (AUTO) 0.54 x10^3/uL (0.2-0.8); MONOCYTES % (AUTO) 6 % (2-9); NEUTROPHILS # (AUTO) 6.53 x10^3/uL (1.8-6.8); NEUTROPHILS % (AUTO) 71 % (42-75); PLATELET COUNT 134 x10^3/uL (130-400); RED BLOOD COUNT 3.73 x10^6/uL (3.82-5.3)
[2020-06-29 22:35] LABS: ALANINE AMINOTRANSFERASE 14 U/L (12-78); ALBUMIN 3.7 g/dL (3.4-5.0); ANION GAP 10 mmol/L (5-15); CALCIUM 10.2 mg/dL (8.5-10.1); CHLORIDE 103 mmol/L (98-107); CREATININE 0.85 mg/dL (0.55-1.02)
[2020-06-29 22:38] LABS: ALKALINE PHOSPHATASE 65 U/L (45-117); BILIRUBIN,TOTAL 0.5 mg/dL (0.2-1.0); TOTAL PROTEIN 7.6 g/dL (6.4-8.2)
[2020-06-29] MEDS ORDERED: OMNIPAQUE 350 MG/ML, 100ML BOTTLE ONE (23:08)
[2020-06-29 23:19] LABS: MICROSCOPIC INDICATED
--- NOTE | 2020-06-29 23:25 | NUR ---
pt resting in bed, pt has no wants or needss at this time, pt on monitors, commercial underwriter will continue to monitor pt vitals
== END 2020-06-30 01:31 | disposition home or self-care (01) ==
LOC: ED 21:43
DX: R10.32 Left lower quadrant pain (principal); R11.2 Nausea with vomiting, unspecified; I11.0 Hypertensive heart disease with heart failure; I50.9 Heart failure, unspecified; E03.9 Hypothyroidism, unspecified; Z95.0 Presence of cardiac pacemaker
CPT/HCPCS: 36415; 74177; 80053; 81001; 83690; 85025; 87086; 96374; 99285; J2405; Q9967; 87077; 87186

== ENCOUNTER 2020-12-20 17:21 | Observation (INO) | payer MEDICARE ==
[~2020-12-20] VITALS: Ht 149.9 cm; Wt 50.4 kg
[~2020-12-20 17:21] MED LIST changes: +HYDR-1067 PO; -HYDR-3240 PO; -PANT40TA5 PO; +PANT40TA6 PO
--- NOTE | 2020-12-20 17:42 | NUR ---
BREAK RN: IRENE MEJÍA FOR DIZZINES/N/V. EMS REPORTS WHEN PATIENT STANDS SHE GETS DIZZY AND JAG. PT HAS A PACEMAKER. PT REPORTS SHE HAD IT PLACED A YEAR AGO. NEWS WIRE PHOTO OPERATOR ON. EKG DONE. VS STABLE. CALL LIGHT IN PLACE. WILL CONTINUE TO MONITOR WHILE PRIMARY RN IS ON BREAK.
[2020-12-20] MEDS ORDERED: SODIUM CHLORIDE FLUSH 10ML SYR IVF ONE (18:00)
[2020-12-20] MEDS ORDERED: ONDANSETRON 2MG/ML, 2ML IVPush ONE (18:00)
[2020-12-20] MEDS ORDERED: SODIUM CHLORIDE 0.9% 1,000ML IVBOLUS ONE (18:00)
--- NOTE | 2020-12-20 18:03 | NUR ---
REPORT GIVEN TO NOAH BEJARANO
[2020-12-20] MEDS ORDERED: ONDANSETRON 2MG/ML, 2ML ONE (18:05)
[2020-12-20 18:07] LABS: BASOPHILS % (AUTO) 0 % (0-1); EOSINOPHILS % (AUTO) 1 % (1-7); LYMPHOCYTES % (AUTO) 25 % (22-44); MEAN CORPUSCULAR HEMOGLOBIN 31.8 pg (27.0-34.8); MONOCYTES % (AUTO) 11 % (2-9); NEUTROPHILS % (AUTO) 63 % (42-75); PLATELET COUNT 205 x10^3/uL (130-400); RED BLOOD COUNT 4.05 x10^6/uL (3.82-5.3); RED CELL DISTRIBUTION WIDTH 15.6 % (9.6-15.2)
[2020-12-20 18:11] LABS: MD NO
--- NOTE | 2020-12-20 18:14 | NUR ---
pt in bed with no signs or symptoms of acute distress noted respirations even and unlabored denies pain complaining of nausea. pt states she doesnt feel dizzy when laying in bed, reports not being able to take anything po today due to nausea and dizziness. 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 ivf infusing well at r ac. lights off in room for comfort
[2020-12-20 18:20] LABS: ALANINE AMINOTRANSFERASE 12 U/L (12-78); ALBUMIN 3.7 g/dL (3.4-5.0); ANION GAP 9 mmol/L (5-15); CALCIUM 9.7 mg/dL (8.5-10.1); CHLORIDE 105 mmol/L (98-107); CREATININE 0.76 mg/dL (0.55-1.02)
[2020-12-20 18:22] LABS: ALKALINE PHOSPHATASE 70 U/L (45-117); BILIRUBIN,TOTAL 0.6 mg/dL (0.2-1.0); TOTAL PROTEIN 7.4 g/dL (6.4-8.2)
--- NOTE | 2020-12-20 18:51 | NUR ---
this rn in room to do straight cath for ua pt tolerated procedure well pt returned to position of comfort, denies pain states that nausea feels better. pt on quality assurance monitor with o2 via nasal cannula at 2l/min, no signs or symptoms of acute distress noted respirations even and unlabored. call light at r hand, ivf infusing well at r ac, bed rails up bilaterally
[2020-12-20 19:12] LABS: MICROSCOPIC INDICATED
--- NOTE | 2020-12-20 20:37 | NUR ---
pt resting comfortably in bed with lights off in room and blankets around self. no signs or symptoms of acute distress noted respirations even and unlabored. pt on cardiac rn with call light in r hand and bed rails up bilaterally.
--- NOTE | 2020-12-20 21:11 | NUR ---
Roberto (son) - [phone]. called twice now.
[2020-12-20] MEDS ORDERED: CEFTAZIDIME PMX 2 GM/50ML 50 ML IV ONE (21:30)
--- NOTE | 2020-12-20 22:05 | NUR ---
report called to christie vizcaino ready for transport. pt in bed with no signs or symptoms of acute dsitress noted respirations even and unlabored denies pain or discomfort vebralizes appreciation for cares and conern and awarenss and agreement with plan. er md rosa start of iv abx without blood cultures, med currently running on pump
--- NOTE | 2020-12-20 22:23 | NUR ---
hospitalist at bedside to assess
[2020-12-20 22:52] VITALS: BP 179/82
[2020-12-20] MEDS ORDERED: ACETAMINOPHEN 325 MG TABLET PO PRN (23:00)
[2020-12-20] MEDS ORDERED: hydrALAzine 20 MG/ML, 1ML IVPush PRN (23:00)
[2020-12-20] MEDS ORDERED: ONDANSETRON 2MG/ML, 2ML IVPush PRN (23:00)
[2020-12-20] MEDS ORDERED: LEVOFLOXACIN/PMX 250MG/50ML 50 ML IV SCH (23:00)
[2020-12-21] MEDS ORDERED: GABAPENTIN 100 MG CAPSULE ONE (00:31)
[2020-12-21] MEDS: GABAPENTIN 100 MG CAPSULE PO SCH ×2 (00:32→08:23)
[2020-12-21 01:23] VITALS: BP 148/72
[2020-12-21 08:00] VITALS: BP 133/76
[2020-12-21] MEDS ORDERED: POTASSIUM CHLORIDE 10 MEQ TABLET.ER PO SCH (09:00)
[2020-12-21] MEDS ORDERED: LISINOPRIL 20 MG TABLET PO SCH (09:00)
[2020-12-21] MEDS ORDERED: GABAPENTIN 100 MG CAPSULE PO SCH (09:00)
[2020-12-21] MEDS ORDERED: PANTOPRAZOLE 40MG TABLET PO SCH (09:00)
[2020-12-21] MEDS ORDERED: METOPROLOL SUCCINATE 50 MG TAB.ER.24H PO SCH (09:00)
[2020-12-21] MEDS ORDERED: LEVOTHYROXINE 25 MCG TABLET PO SCH (09:00)
[2020-12-21] MEDS ORDERED: SENNA/DOCUSATE TABLET PO SCH (09:00)
[2020-12-21] MEDS ORDERED: ESTR30CR TP (11:40)
[2020-12-21] MEDS ORDERED: CEFD300C37 PO (11:40)
[2020-12-21 12:20] VITALS: BP 128/86
[2020-12-21] MEDS ORDERED: ATORVASTATIN 20 MG TABLET PO SCH (21:00)
== END 2020-12-21 13:49 | disposition home or self-care (01) ==
LOC: ED 22:05 → INTOOBSV 22:06 → EDIP 22:06 → 4NE 22:47 → DCLOUNGE 12-21 13:45
PROVIDERS: ADMIT Family Medicine; ATTEND Internal Medicine
DX: N39.0 Urinary tract infection, site not specified (principal); R11.2 Nausea with vomiting, unspecified; J96.10 Chronic respiratory failure, unspecified whether with hypoxia or hypercapnia; E03.9 Hypothyroidism, unspecified; I11.0 Hypertensive heart disease with heart failure; I50.32 Chronic diastolic (congestive) heart failure; K21.9 Gastro-esophageal reflux disease without esophagitis; K59.09 Other constipation; R55 Syncope and collapse; E86.0 Dehydration; E78.5 Hyperlipidemia, unspecified; Z79.899 Other long term (current) drug therapy; Z87.440 Personal history of urinary (tract) infections; Z87.891 Personal history of nicotine dependence; Z95.0 Presence of cardiac pacemaker
CPT/HCPCS: 36415; 80053; 81001; 83690; 84443; 85025; 87086; 93005; 96365; 96367; 96375; 96376; 97161; G0378; J0713; J1956; J2405; J7030